=== PATIENT | male | born 1945 | race Caucasian/White ===

== ENCOUNTER → 2025-04-29 15:41 | Outpatient (REF) | payer OTHER, SELFPAY | LOC: RCS 15:41 | PROVIDERS: ATTENDING PHYSICIAN Internal Medicine Cardiovascular Disease; FAMILY PHYSICIAN Student in an Organized Health Care Education/Training Program | DX: I48.0 Paroxysmal atrial fibrillation (principal) | CPT/HCPCS: 93306 ==